=== PATIENT | male | born 1985 | race Caucasian/White ===

== ENCOUNTER 2017-03-14 22:08 | Emergency (ER) | payer BC ==
[~2017-03-14 22:08] MED LIST: ADDERALL XR20 MG PO
[2017-03-14 22:13] VITALS: BP 138/88; TEMP 99.2
[2017-03-14] MEDS ORDERED: NORCO 325 MG-51 TAB PO (22:16)
[2017-03-14] MEDS ORDERED: FLOMAX 0.40.4 MG/CAP PO (22:41)
[2017-03-14 23:25] LABS: BASO # 0.1 (0.0-0.2); BASO % 0.6 % (0.0-2.0); EOS # 0.1 (0.0-0.7); EOS % 0.5 % (0-4.0); GRAN # 11.3 (1.4-6.5); GRAN % 77.2 % (42.2-75.2); HEMATOCRIT 47.2 % (42.0-52.0); HEMOGLOBIN 16.8 g/dl (13.5-18.0); LYMPH # 1.9 (1.2-3.4); LYMPH % 12.9 % (20.0-51.0); MEAN CELL VOLUME 88 fl (80.0-100.0); MEAN CORPUSCULAR HEMOGLOBIN 31 pg (27.0-31.0); MEAN CORPUSCULAR HGB CONC 36 g/dl (33.0-37.0); MEAN PLATELET VOLUME 9.5 fl (7.4-10.4); MONO # 1.2 (0.1-0.6); MONO % 8.1 % (1.7-9.3); PLATELET COUNT 286 K/mm3 (130-400); RED BLOOD COUNT 5.35 M/mm3 (4.20-5.60); REDCELL DISTRIBUTION WIDTH-CV 12.3 % (11.5-14.5); WHITE BLOOD COUNT 14.7 K/mm3 (4.8-10.8)
[2017-03-14 23:35] LABS: PH 7 (5-8); SQUAMOUS EPITHELIAL None Seen /hpf; URINE APPEARANCE Hazy; URINE BACTERIA Rare /hpf; URINE BILIRUBIN Negative (NEGATIVE); URINE BLOOD 3+ (NEGATIVE); URINE COLOR Yellow; URINE GLUCOSE Negative (NEGATIVE); URINE KETONE Trace (NEGATIVE); URINE RBC >50 /hpf; URINE UROBILINOGEN Negative (NEGATIVE)
[2017-03-14 23:36] LABS: ADJUSTED CALCIUM 9.2 mg/dL (8.4-10.2); ALBUMIN 4.8 gm/dL (3.5-5.0); BILIRUBIN,TOTAL 0.9 mg/dL (0.0-1.0); CALCIUM 9.8 mg/dL (8.4-10.2); CREATININE, serum 0.93 mg/dL (0.66-1.25); POTASSIUM 3.3 mmol/L (3.4-5.0)
[2017-03-14 23:44] LABS: URINE WBC >50 /hpf
[2017-03-15] MEDS ORDERED: CIPRO 500MG TA500 MG PO (00:28)
[2017-03-15] MEDS ORDERED: NORCO 325 MG-51 TAB PO (00:34)
[2017-03-15 01:03] VITALS: PULSE 70
== END 2017-03-15 01:03 | disposition home or self-care (01) ==
LOC: COL.ER 22:08
PROVIDERS: Emergency Medicine
DX: R10.9 Unspecified abdominal pain (principal); R31.9 Hematuria, unspecified; Z87.442 Personal history of urinary calculi; Z96.0 Presence of urogenital implants; Z98.890 Other specified postprocedural states
CPT/HCPCS: J2270; J7030

== ENCOUNTER 2017-03-27 11:58 | Inpatient (IN) | payer BC ==
[~2017-03-27] VITALS: Ht 180.3 cm; Wt 85.0 kg
[2017-03-27] VITALS (42 sets, daily range): BP systolic 105–117; BP diastolic 54–66; PULSE 102–130; TEMP 99.6–103.5; O2SAT 89–97
[~2017-03-27 11:58] MED LIST changes: +CIPRO 500MG TA500 MG PO; +FLOMAX 0.40.4 MG/CAP PO; +NORCO 325 MG-51 TAB PO
[2017-03-27 12:16] LABS: COLLECTION METHOD CLEAN CATCH
[2017-03-27 12:28] LABS: MUCOUS Present /lpf; PH 5 (5-8); SQUAMOUS EPITHELIAL None Seen /hpf; URINE APPEARANCE Cloudy; URINE BACTERIA None Seen /hpf; URINE BILIRUBIN Negative (NEGATIVE); URINE BLOOD 3+ (NEGATIVE); URINE COLOR Amber; URINE GLUCOSE Negative (NEGATIVE); URINE KETONE Negative (NEGATIVE); URINE LEUKOCYTE ESTERASE 3+ (NEGATIVE); URINE PROTEIN(semi-quant) 3+ (NEGATIVE); URINE RBC >50 /hpf; URINE UROBILINOGEN Negative (NEGATIVE)
[2017-03-27 12:32] LABS: URINE WBC >50 /hpf
[2017-03-27 12:34] LABS: HEMATOCRIT 44.8 % (42.0-52.0); HEMOGLOBIN 15.5 g/dl (13.5-18.0); MEAN CELL VOLUME 89 fl (80.0-100.0); MEAN CORPUSCULAR HEMOGLOBIN 31 pg (27.0-31.0); MEAN CORPUSCULAR HGB CONC 35 g/dl (33.0-37.0); MEAN PLATELET VOLUME 9.3 fl (7.4-10.4); PLATELET COUNT 258 K/mm3 (130-400); RED BLOOD COUNT 5.06 M/mm3 (4.20-5.60); WHITE BLOOD COUNT 15.8 K/mm3 (4.8-10.8)
[2017-03-27 12:35] LABS: ADD PATHOLOGY DIFF REVIEW NO
[2017-03-27 13:03] LABS: ADJUSTED CALCIUM 9.3 mg/dL (8.4-10.2); ALBUMIN 4.3 gm/dL (3.5-5.0); BILIRUBIN,TOTAL 0.9 mg/dL (0.0-1.0); C-REACTIVE PROTEIN 5.9 mg/dL (0.0-0.9); CALCIUM 9.5 mg/dL (8.4-10.2); CREATININE, serum 1.02 mg/dL (0.66-1.25); POTASSIUM 3.3 mmol/L (3.4-5.0); TOTAL PROTEIN 7.5 gm/dL (6.4-8.2)
[2017-03-27 14:15] LABS: BAND 32 % (0-10); BASOPHIL 1 % (0-2); LYMPHOCYTE 7 % (20.0-51.0); MYELOCYTE 1 % (0-0); NEUTROPHILS 59 % (42.0-75.2); PLATELET ESTIMATE NORMAL (NORMAL); TOTAL CELLS COUNTED 100
[2017-03-27 15:29] LABS: INFLUENZA A NEGATIVE; INFLUENZA B NEGATIVE
[2017-03-27 20:56] LABS: BASO # 0.1 (0.0-0.2); BASO % 0.4 % (0.0-2.0); GRAN # 15.5 (1.4-6.5); GRAN % 87.5 % (42.2-75.2); HEMATOCRIT 38.1 % (42.0-52.0); LYMPH # 0.8 (1.2-3.4); LYMPH % 4.3 % (20.0-51.0); MEAN CELL VOLUME 88 fl (80.0-100.0); MEAN CORPUSCULAR HEMOGLOBIN 31 pg (27.0-31.0); MEAN CORPUSCULAR HGB CONC 35 g/dl (33.0-37.0); MEAN PLATELET VOLUME 9.2 fl (7.4-10.4); MONO # 1.2 (0.1-0.6); MONO % 6.7 % (1.7-9.3); PLATELET COUNT 205 K/mm3 (130-400); RED BLOOD COUNT 4.32 M/mm3 (4.20-5.60); WHITE BLOOD COUNT 17.7 K/mm3 (4.8-10.8)
[2017-03-27 20:57] LABS: HEMOGLOBIN 13.2 g/dl (13.5-18.0)
[2017-03-27 21:06] LABS: ALBUMIN 3.1 gm/dL (3.5-5.0); BILIRUBIN,TOTAL 0.8 mg/dL (0.0-1.0); CALCIUM 8.3 mg/dL (8.4-10.2); CREATININE, serum 1.02 mg/dL (0.66-1.25); POTASSIUM 3.2 mmol/L (3.4-5.0); TOTAL PROTEIN 5.7 gm/dL (6.4-8.2)
[2017-03-28] VITALS (796 sets, daily range): BP systolic 88–118; BP diastolic 60–85; PULSE 91–122; TEMP 97.8–102.5; O2SAT 75–100
[2017-03-28 06:28] LABS: HEMOGLOBIN 12.7 g/dl (13.5-18.0); MEAN CORPUSCULAR HEMOGLOBIN 31 pg (27.0-31.0); MEAN CORPUSCULAR HGB CONC 33 g/dl (33.0-37.0); MEAN PLATELET VOLUME 9.9 fl (7.4-10.4); PLATELET COUNT 216 K/mm3 (130-400)
[2017-03-28 06:31] LABS: MEAN CELL VOLUME 93 fl (80.0-100.0); WHITE BLOOD COUNT 21.2 K/mm3 (4.8-10.8)
[2017-03-28 06:36] LABS: ADJUSTED CALCIUM 8.7 mg/dL (8.4-10.2); BILIRUBIN,TOTAL 0.7 mg/dL (0.0-1.0); CALCIUM 7.9 mg/dL (8.4-10.2); CREATININE, serum 1.08 mg/dL (0.66-1.25); POTASSIUM 5.1 mmol/L (3.4-5.0); TOTAL PROTEIN 5.8 gm/dL (6.4-8.2)
[2017-03-28 07:19] LABS: ADD PATHOLOGY DIFF REVIEW NO
[2017-03-28 07:23] LABS: BAND 42 % (0-10); BASOPHIL 1 % (0-2); LYMPHOCYTE 3 % (20.0-51.0); METAMYELOCYTE 1 % (0-0); NEUTROPHILS 44 % (42.0-75.2); PLATELET ESTIMATE NORMAL (NORMAL); TOTAL CELLS COUNTED 100
[2017-03-28 13:24] LABS: ADJUSTED CALCIUM 8.8 mg/dL (8.4-10.2); ALBUMIN 2.9 gm/dL (3.5-5.0); BILIRUBIN,TOTAL 0.8 mg/dL (0.0-1.0); CALCIUM 7.9 mg/dL (8.4-10.2); CREATININE, serum 1.08 mg/dL (0.66-1.25); POTASSIUM 4.8 mmol/L (3.4-5.0); TOTAL PROTEIN 5.7 gm/dL (6.4-8.2)
[2017-03-29] VITALS (811 sets, daily range): BP systolic 112–143; BP diastolic 70–96; PULSE 73–120; TEMP 98.8–101; O2SAT 84–99
[2017-03-29 04:55] LABS: MEAN CELL VOLUME 91 fl (80.0-100.0); MEAN CORPUSCULAR HGB CONC 34 g/dl (33.0-37.0); MEAN PLATELET VOLUME 9.7 fl (7.4-10.4); PLATELET COUNT 219 K/mm3 (130-400); WHITE BLOOD COUNT 19.4 K/mm3 (4.8-10.8)
[2017-03-29 05:02] LABS: HEMATOCRIT 35.5 % (42.0-52.0); HEMOGLOBIN 11.9 g/dl (13.5-18.0); MEAN CORPUSCULAR HEMOGLOBIN 31 pg (27.0-31.0)
[2017-03-29 05:03] LABS: ADD PATHOLOGY DIFF REVIEW NO
[2017-03-29 05:07] LABS: ADJUSTED CALCIUM 9.3 mg/dL (8.4-10.2); BILIRUBIN,TOTAL 0.8 mg/dL (0.0-1.0); CALCIUM 8.5 mg/dL (8.4-10.2); CREATININE, serum 1.01 mg/dL (0.66-1.25); POTASSIUM 4.2 mmol/L (3.4-5.0)
[2017-03-29 06:07] LABS: BAND 59 % (0-10); LYMPHOCYTE 6 % (20.0-51.0); NEUTROPHILS 27 % (42.0-75.2); PLATELET ESTIMATE NORMAL (NORMAL); TOTAL CELLS COUNTED 100
[2017-03-29 06:10] LABS: INR 1.5 (0.8-3.0); PROTHROMBIN TIME 16.6 SECONDS (9.7-12.8)
[2017-03-29 13:25] LABS: CEREBROSPINAL TUBE #4; CSF APPEARANCE CLEAR; CSF COLOR COLORLESS
[2017-03-29 13:26] LABS: CSF POLYMORPHONUCLEAR 0 % (0-6)
[2017-03-30] VITALS (783 sets, daily range): BP systolic 132–145; BP diastolic 90–93; PULSE 60–67; TEMP 97–98.7; O2SAT 76–97
[2017-03-30 04:56] LABS: HEMOGLOBIN 12.3 g/dl (13.5-18.0); MEAN CELL VOLUME 89 fl (80.0-100.0); MEAN CORPUSCULAR HEMOGLOBIN 31 pg (27.0-31.0); MEAN CORPUSCULAR HGB CONC 35 g/dl (33.0-37.0); MEAN PLATELET VOLUME 10.3 fl (7.4-10.4); PLATELET COUNT 246 K/mm3 (130-400); RED BLOOD COUNT 4.02 M/mm3 (4.20-5.60)
[2017-03-30 05:04] LABS: ADD PATHOLOGY DIFF REVIEW NO; HEMATOCRIT 35.6 % (42.0-52.0); WHITE BLOOD COUNT 20.7 K/mm3 (4.8-10.8)
[2017-03-30 05:08] LABS: ADJUSTED CALCIUM 9.5 mg/dL (8.4-10.2); ALBUMIN 2.9 gm/dL (3.5-5.0); BILIRUBIN,TOTAL 0.7 mg/dL (0.0-1.0); CALCIUM 8.6 mg/dL (8.4-10.2); CREATININE, serum 0.93 mg/dL (0.66-1.25); MAGNESIUM 1.9 mg/dL (1.6-2.3); POTASSIUM 3.7 mmol/L (3.4-5.0)
[2017-03-30 05:16] LABS: NEUTROPHILS 76 % (42.0-75.2)
[2017-03-30 05:17] LABS: ANISOCYTOSIS 1+; BAND 6 % (0-10); BURR CELLS 1+; EOSINOPHIL 1 % (0-4); POIKILOCYTOSIS 1+; ROULEAUX 2+; TOTAL CELLS COUNTED 100; TOXIC GRANULATION PRESENT
[2017-03-30 05:18] LABS: LYMPHOCYTE 8 % (20.0-51.0)
[2017-03-31] VITALS (8 sets, daily range): BP systolic 129–151; BP diastolic 78–106; PULSE 58–96; TEMP 98.1–99
[2017-03-31 05:47] LABS: MEAN CELL VOLUME 88 fl (80.0-100.0); MEAN CORPUSCULAR HEMOGLOBIN 30 pg (27.0-31.0); MEAN CORPUSCULAR HGB CONC 34 g/dl (33.0-37.0); MEAN PLATELET VOLUME 10.2 fl (7.4-10.4); PLATELET COUNT 273 K/mm3 (130-400); RED BLOOD COUNT 4.01 M/mm3 (4.20-5.60); WHITE BLOOD COUNT 15.8 K/mm3 (4.8-10.8)
[2017-03-31 05:51] LABS: HEMATOCRIT 35.3 % (42.0-52.0)
[2017-03-31 06:01] LABS: ADJUSTED CALCIUM 9.2 mg/dL (8.4-10.2); ALBUMIN 2.7 gm/dL (3.5-5.0); BILIRUBIN,TOTAL 0.4 mg/dL (0.0-1.0); CALCIUM 8.2 mg/dL (8.4-10.2); CREATININE, serum 0.8 mg/dL (0.66-1.25); POTASSIUM 3.3 mmol/L (3.4-5.0); TOTAL PROTEIN 5.6 gm/dL (6.4-8.2)
[2017-03-31 06:59] LABS: BAND 28 % (0-10); LYMPHOCYTE 8 % (20.0-51.0); METAMYELOCYTE 1 % (0-0); MYELOCYTE 1 % (0-0); NEUTROPHILS 61 % (42.0-75.2); PLATELET ESTIMATE NORMAL (NORMAL); TOTAL CELLS COUNTED 100
[2017-03-31 08:27] LABS: ADD PATHOLOGY DIFF REVIEW YES
[2017-03-31 08:28] LABS: PATHOLOGY DIFF REVIEW OK
[2017-03-31 10:50] LABS: MAGNESIUM 2.1 mg/dL (1.6-2.3); PHOSPHOROUS 1.6 mg/dL (2.5-4.5)
[2017-04-01 05:21] VITALS: BP 146/84; PULSE 66; TEMP 98.8
[2017-04-01 08:20] VITALS: BP 143/85; PULSE 63; TEMP 99
[2017-04-01 08:48] LABS: HEMATOCRIT 37.5 % (42.0-52.0); HEMOGLOBIN 13.1 g/dl (13.5-18.0); MEAN CELL VOLUME 88 fl (80.0-100.0); MEAN CORPUSCULAR HEMOGLOBIN 31 pg (27.0-31.0); MEAN CORPUSCULAR HGB CONC 35 g/dl (33.0-37.0); MEAN PLATELET VOLUME 9.9 fl (7.4-10.4); PLATELET COUNT 339 K/mm3 (130-400); RED BLOOD COUNT 4.27 M/mm3 (4.20-5.60); WHITE BLOOD COUNT 14.4 K/mm3 (4.8-10.8)
[2017-04-01 08:54] LABS: ADD PATHOLOGY DIFF REVIEW NO
[2017-04-01 08:56] LABS: PHOSPHOROUS 3.5 mg/dL (2.5-4.5)
[2017-04-01 09:08] LABS: CALCIUM 8.7 mg/dL (8.4-10.2); CREATININE, serum 0.74 mg/dL (0.66-1.25); POTASSIUM 3.5 mmol/L (3.4-5.0)
[2017-04-01 09:38] LABS: BAND 48 % (0-10); BASOPHIL 1 % (0-2); EOSINOPHIL 1 % (0-4); LYMPHOCYTE 13 % (20.0-51.0); METAMYELOCYTE 1 % (0-0); MYELOCYTE 1 % (0-0); NEUTROPHILS 34 % (42.0-75.2); PLATELET ESTIMATE INCREASED (NORMAL); TOTAL CELLS COUNTED 100
[2017-04-01 13:01] VITALS: BP 133/76; PULSE 74; TEMP 98.9
[2017-04-01 15:46] VITALS: BP 137/80; PULSE 73; TEMP 99.4
[2017-04-01 19:54] VITALS: BP 114/73; PULSE 89; TEMP 98.3
[2017-04-02] VITALS (7 sets, daily range): BP systolic 121–134; BP diastolic 64–87; PULSE 63–88; TEMP 97.9–99.2
[2017-04-02 07:15] LABS: HEMATOCRIT 38.7 % (42.0-52.0); HEMOGLOBIN 13.1 g/dl (13.5-18.0); MEAN CELL VOLUME 89 fl (80.0-100.0); MEAN CORPUSCULAR HEMOGLOBIN 30 pg (27.0-31.0); MEAN CORPUSCULAR HGB CONC 34 g/dl (33.0-37.0); MEAN PLATELET VOLUME 9.9 fl (7.4-10.4); PLATELET COUNT 401 K/mm3 (130-400); RED BLOOD COUNT 4.36 M/mm3 (4.20-5.60); WHITE BLOOD COUNT 16.2 K/mm3 (4.8-10.8)
[2017-04-02 07:21] LABS: ADD PATHOLOGY DIFF REVIEW NO
[2017-04-02 07:48] LABS: CALCIUM 8.9 mg/dL (8.4-10.2); CREATININE, serum 0.75 mg/dL (0.66-1.25); POTASSIUM 3.9 mmol/L (3.4-5.0)
[2017-04-02 07:59] LABS: MAGNESIUM 2.1 mg/dL (1.6-2.3); PHOSPHOROUS 3.9 mg/dL (2.5-4.5)
[2017-04-02 08:33] LABS: BAND 16 % (0-10); EOSINOPHIL 1 % (0-4); LYMPHOCYTE 17 % (20.0-51.0); NEUTROPHILS 56 % (42.0-75.2); PLATELET ESTIMATE INCREASED (NORMAL); TOTAL CELLS COUNTED 100
[2017-04-02 08:40] LABS: TOXIC GRANULATION PRESENT
[2017-04-03 05:57] LABS: HEMATOCRIT 38.8 % (42.0-52.0); HEMOGLOBIN 13.4 g/dl (13.5-18.0); MEAN CELL VOLUME 88 fl (80.0-100.0); MEAN CORPUSCULAR HEMOGLOBIN 31 pg (27.0-31.0); MEAN CORPUSCULAR HGB CONC 35 g/dl (33.0-37.0); MEAN PLATELET VOLUME 9.5 fl (7.4-10.4); PLATELET COUNT 475 K/mm3 (130-400); RED BLOOD COUNT 4.39 M/mm3 (4.20-5.60); WHITE BLOOD COUNT 17.9 K/mm3 (4.8-10.8)
[2017-04-03 06:05] LABS: ADD PATHOLOGY DIFF REVIEW NO
[2017-04-03 06:14] LABS: CALCIUM 9.1 mg/dL (8.4-10.2); CREATININE, serum 0.83 mg/dL (0.66-1.25); MAGNESIUM 2.2 mg/dL (1.6-2.3); PHOSPHOROUS 3.7 mg/dL (2.5-4.5); POTASSIUM 4.5 mmol/L (3.4-5.0)
[2017-04-03 07:59] LABS: BAND 6 % (0-10); EOSINOPHIL 3 % (0-4); LYMPHOCYTE 17 % (20.0-51.0); METAMYELOCYTE 1 % (0-0); MYELOCYTE 3 % (0-0); NEUTROPHILS 65 % (42.0-75.2); PLATELET ESTIMATE INCREASED (NORMAL); TOTAL CELLS COUNTED 100
[2017-04-03 08:00] LABS: TOXIC GRANULATION PRESENT
[2017-04-03 08:16] VITALS: BP 118/68; PULSE 75; TEMP 98.2
[2017-04-03 12:03] VITALS: BP 126/72; PULSE 93; TEMP 98.5
[2017-04-03 15:53] VITALS: BP 130/76; PULSE 79; TEMP 98.6
[2017-04-03 20:25] VITALS: BP 130/71; PULSE 63; TEMP 98.2
[2017-04-03 23:59] VITALS: BP 117/66; PULSE 68; TEMP 98.7
[2017-04-04 03:34] VITALS: BP 120/72; PULSE 67; TEMP 98.5
[2017-04-04 06:46] LABS: HEMATOCRIT 40.2 % (42.0-52.0); HEMOGLOBIN 13.5 g/dl (13.5-18.0); MEAN CELL VOLUME 89 fl (80.0-100.0); MEAN CORPUSCULAR HEMOGLOBIN 30 pg (27.0-31.0); MEAN CORPUSCULAR HGB CONC 34 g/dl (33.0-37.0); MEAN PLATELET VOLUME 9.7 fl (7.4-10.4); PLATELET COUNT 534 K/mm3 (130-400); RED BLOOD COUNT 4.51 M/mm3 (4.20-5.60); WHITE BLOOD COUNT 14.7 K/mm3 (4.8-10.8)
[2017-04-04 07:04] LABS: CALCIUM 9.2 mg/dL (8.4-10.2); CREATININE, serum 0.85 mg/dL (0.66-1.25); MAGNESIUM 2.3 mg/dL (1.6-2.3); PHOSPHOROUS 3.7 mg/dL (2.5-4.5); POTASSIUM 4.4 mmol/L (3.4-5.0)
[2017-04-04 07:33] VITALS: BP 136/76; PULSE 75; TEMP 98.5
[2017-04-04] MEDS ORDERED: PRINCIPEN500 MG PO (09:35)
[2017-04-04] MEDS ORDERED: NORCO 325 MG-7.1 TAB PO (09:36)
[2017-04-04 10:54] LABS: ADD PATHOLOGY DIFF REVIEW YES; BAND 17 % (0-10); EOSINOPHIL 5 % (0-4); LYMPHOCYTE 14 % (20.0-51.0); METAMYELOCYTE 2 % (0-0); MYELOCYTE 3 % (0-0); NEUTROPHILS 55 % (42.0-75.2); PLATELET ESTIMATE INCREASED (NORMAL); TOTAL CELLS COUNTED 100
[2017-04-04 11:23] VITALS: BP 117/74; PULSE 95; TEMP 98.2
[2017-04-05 08:43] LABS: PATHOLOGY DIFF REVIEW OK
== END 2017-04-04 13:00 | disposition home or self-care (01) | DRG 872 ==
LOC: COL.ER 11:58 → SURG 14:10 → ICU 20:39 → SURG 20:39 → ICU 20:43 → MEDICAL 03-31 12:37
PROVIDERS: Emergency Medicine; Family Medicine; Internal Medicine; Internal Medicine Critical Care Medicine; Nurse Practitioner; Nurse Practitioner Family
PROC: 009U3ZX Drainage of Spinal Canal, Percutaneous Approach, Diagnostic (ICD-10-PCS; principal; 2017-03-29)
PROC: B01BZZZ Fluoroscopy of Spinal Cord (ICD-10-PCS; 2017-03-29)
DX: A41.81 Sepsis due to Enterococcus (principal); R29.1 Meningismus; N10 Acute pyelonephritis; N20.2 Calculus of kidney with calculus of ureter; B95.2 Enterococcus as the cause of diseases classified elsewhere; F17.210 Nicotine dependence, cigarettes, uncomplicated; E87.6 Hypokalemia
CPT/HCPCS: 99223; 99232-AI; 99233-AI; A9585; C1751; C1894; J0295; J0696; J0780; J1170; J1450; J1644; J1650; J1885; J1956; J2185; J2270; J2405; J2543; J2550; J3370; J3480; J7030; J7050; Q9967

== ENCOUNTER 2017-04-22 05:20 | Day surgery (SDC) | payer BC ==
[2017-04-22] VITALS (7 sets, daily range): BP systolic 115–125; BP diastolic 73–88; PULSE 71–85; TEMP 98.1–98.2
[~2017-04-22] VITALS: Ht 180.3 cm; Wt 82.0 kg
[~2017-04-22 05:20] MED LIST changes: +NORCO 325 MG-7.1 TAB PO; +PRINCIPEN500 MG PO
[2017-04-22] MEDS ORDERED: NORCO 325 MG-7.1 TAB PO (05:49)
[2017-04-22] MEDS ORDERED: LEVAQUIN 5500 MG/TA1 PO (05:50)
[2017-04-22] MEDS ORDERED: NORCO 325 MG-51 TAB PO (09:36)
[2017-04-22] MEDS ORDERED: SENOKOT S 50 MG1 TAB PO (09:37)
[2017-04-22] MEDS ORDERED: PYRIDIUM 100MG100 MG PO (09:37)
== END 2017-04-22 11:45 | disposition home or self-care (01) ==
LOC: SDCO 05:20
DX: N20.2 Calculus of kidney with calculus of ureter (principal); E78.5 Hyperlipidemia, unspecified; F17.210 Nicotine dependence, cigarettes, uncomplicated; Z82.49 Family history of ischemic heart disease and other diseases of the circulatory system; Z83.3 Family history of diabetes mellitus
CPT/HCPCS: C1769; C2617; J0690; J1100; J1885; J1956; J2250; J2270; J2405; J2704; J3010; J7120